=== PATIENT | female | born 1930 | race Hispanic/Latino ===

== ENCOUNTER → 2018-10-02 | Outpatient (CLI) | payer MEDICARE | END | disposition home or self-care (01) | LOC: SHCH 13:30 | PROVIDERS: ATTEND Internal Medicine Cardiovascular Disease | DX: R60.9 Edema, unspecified (principal) | CPT/HCPCS: 93306 ==

== ENCOUNTER 2019-06-07 18:02 | Inpatient (IN) | payer MEDICARE ==
[~2019-06-07] VITALS: Ht 160 cm; Wt 77.0 kg
[2019-06-07] MEDS ORDERED: ONDANSETRON HCL 4 MG/2 ML VIAL ONE (18:10)
[2019-06-07 18:43] LABS: BASOPHILS % (AUTO) 0.1 % (0.0-5.0); EOSINOPHILS % (AUTO) 0.3 % (0.0-8.0); HEMATOCRIT 31.5 % (36-48); LYMPHOCYTES % (AUTO) 2.9 % (21.0-51.0); MEAN CORPUSCULAR HEMOGLOBIN 25.2 pg (27.0-33.0); MEAN CORPUSCULAR HGB CONC 31.4 g/dL (32.0-36.0); MEAN CORPUSCULAR VOLUME 80.2 fL (79-99); MONOCYTES % (AUTO) 1.3 % (3.0-13.0); PLATELET COUNT (AUTO) 255 K/uL (130-400); RED BLOOD CELL COUNT(AUTO) 3.93 MIL/uL (4.00-5.50); RED CELL DISTRIBUTION WIDTH 14.5 % (11.0-15.5); WHITE BLOOD COUNT (AUTO) 13.7 K/uL (4.8-10.8)
[2019-06-07 19:01] LABS: APPEARANCE,URINE Clear (CLEAR); BILIRUBIN,URINE Negative (NEGATIVE); COLOR,URINE Yellow (YELLOW); GLUCOSE, URINE (UA) Negative (NEGATIVE); KETONES,URINE Negative (NEGATIVE); LEUKOCYTE ESTERASE ,URINE Negative (NEGATIVE); NITRATE,URINE Negative (NEGATIVE); OCCULT BLOOD,URINE Negative (NEGATIVE); PROTEIN,URINE Negative (NEGATIVE)
[2019-06-07 19:29] LABS: CREATININE 1.3 mg/dL (0.5-1.5); POTASSIUM 3.9 mmol/L (3.5-5.1)
[2019-06-07 19:34] LABS: ALBUMIN 3.8 g/dL (3.5-5.0); BILIRUBIN,TOTAL 1.5 mg/dL (0.2-1.0); TOTAL PROTEIN, SERUM 7.1 g/dL (6.0-8.3)
[2019-06-07] MEDS ORDERED: ACETAMINOPHEN 325 MG TAB ONE (19:46)
[2019-06-07] MEDS ORDERED: CEFTRIAXONE SODIUM 1 GM ONE (21:03)
[2019-06-07] MEDS ORDERED: AZITHROMYCIN 250 MG TABLET PO ONE (21:04)
[2019-06-07] MEDS ORDERED: ACETAMINOPHEN 325 MG TAB PO PRN ×2 (21:30)
[2019-06-07] MEDS ORDERED: DEXTROSE 50%-WATER 50 ML DISP.SYRIN IV PRN (21:30)
[2019-06-07] MEDS ORDERED: ONDANSETRON HCL 4 MG/2 ML VIAL IVP PRN (21:30)
[2019-06-07] MEDS ORDERED: GLUCAGON 1MG KIT 1 MG ML IM PRN (21:30)
[2019-06-07] MEDS ORDERED: SODIUM CHLORIDE 0.9% 10 ML VIAL IVP PRN (21:30)
[2019-06-07] MEDS ORDERED: HYDROXYCHLOROQUINE SULFATE 200 MG TAB PO ONE (21:45)
[2019-06-07] MEDS ORDERED: DILTIAZEM HCL 125 MG/25 ML 125 MG in SODIUM CHLORIDE 0.9% 100 ML IV SCH (22:00)
[2019-06-07] MEDS ORDERED: METOPROLOL TARTRATE 1 MG/ML 5ML VIAL IV PRN (22:00)
[2019-06-07] MEDS: PHARMACY COMMUNICATION MISC SCH (22:00)
[2019-06-07 23:25] VITALS: BP 91/40
[2019-06-07] MEDS ORDERED: VANCOMYCIN PROTOCOL PER PHARMACY IV SCH (23:45)
[2019-06-08] VITALS (90 sets, daily range): BP systolic 55–172; BP diastolic 24–103
[2019-06-08] MEDS: NOREPINEPHRINE 4MG/NS 250ML 250 ML IV SCH ×6 (00:28→11:06)
[2019-06-08] MEDS ORDERED: VANCOMYCIN 1GM+NS 250ML 250 ML IV STA (00:29)
[2019-06-08] MEDS: ZOSYN 3.375GM+NS 50ML 50 ML IV SCH ×3 (01:15→23:52)
[2019-06-08] MEDS ORDERED: VANCOMYCIN 1.75 GM in SODIUM CHLORIDE 0.9% 250 ML IV SCH (02:00)
[2019-06-08] MEDS ORDERED: VANCOMYCIN 1GM+NS 250ML 250 ML IV ONE (02:12)
[2019-06-08] MEDS ORDERED: CARV12.511 PO (03:37)
[2019-06-08] MEDS ORDERED: LINA5TAB PO (03:37)
[2019-06-08] MEDS ORDERED: LOSA50TA64 PO (03:37)
[2019-06-08] MEDS ORDERED: DONE10TA43 PO (03:37)
[2019-06-08] MEDS ORDERED: POTA10CA44 PO (03:37)
[2019-06-08] MEDS ORDERED: FURO40TA7 PO (03:37)
[2019-06-08] MEDS ORDERED: MONT10TA26 PO (03:37)
[2019-06-08] MEDS ORDERED: PRED2.5T PO (03:37)
[2019-06-08] MEDS ORDERED: AMLO-314 PO (03:37)
[2019-06-08 05:41] LABS: BASOPHILS % (AUTO) 0.2 % (0.0-5.0); EOSINOPHILS % (AUTO) 0.2 % (0.0-8.0); LYMPHOCYTES % (AUTO) 1.2 % (21.0-51.0); MEAN CORPUSCULAR HGB CONC 29.6 g/dL (32.0-36.0); MEAN CORPUSCULAR VOLUME 84.4 fL (79-99); MONOCYTES % (AUTO) 3.6 % (3.0-13.0); NEUTROPHILS % (AUTO) 92.5 % (40.0-77.0); PLATELET COUNT (AUTO) 217 K/uL (130-400); RED CELL DISTRIBUTION WIDTH 14.6 % (11.0-15.5); WHITE BLOOD COUNT (AUTO) 27.5 K/uL (4.8-10.8)
[2019-06-08 05:57] LABS: CREATININE 1.8 mg/dL (0.5-1.5); POTASSIUM 4.3 mmol/L (3.5-5.1)
[2019-06-08] MEDS: PHARMACY COMMUNICATION MISC SCH (06:00)
[2019-06-08 06:12] LABS: ALBUMIN 3.1 g/dL (3.5-5.0); BILIRUBIN,TOTAL 2.7 mg/dL (0.2-1.0); TOTAL PROTEIN, SERUM 5.7 g/dL (6.0-8.3)
[2019-06-08] MEDS: INSULIN R PO SS1 SQ SCH ×4 (06:57→20:59)
--- NOTE | 2019-06-08 07:59 | NUR ---
0000: patient arrived to room 219. on room air, satting 85%. patient connected to bedside monitoring, and placed on 3l nc. bedside report recieved from adrianna harmon rn. 18g piv placed in the L. AC, prn order for levophed to maintain blood pressure greater then 65 started at this time at 0.4mcg/kg/min. 0030: benchmark inspector advanced composite, sandhya philip, paged by unit nurse 0100: ROSIO philip, returned call. order for PICC line placement in am. Stat 1gram of IV vancomycin and orders for vancomycin dosing per pharmacy protocol. prn order for vasopressin to maintain map greater then 65. order for abg at 7am. ok to place patient on high flow NC to maintain o2 saturations greater then 92. torb
--- NOTE | 2019-06-08 08:03 | NUR ---
SPOKE TO WHITNEY AND UPDATED ON PTS STATUS. PICC LINE CONSENT OBTAINED. EXPLAINED THAT PT IS AROUSABLE, BUT IS NEEDING INCREASING AMOUNTS OF VASOPRESSOR MEDICATIONS TO KEEP BLOOD PRESSURE FROM FALLING. SPOKE ABOUT DNR PER MD JONES. RECEIVED CONSENT FOR DNR ALSO.
--- NOTE | 2019-06-08 08:04 | NUR ---
0545: DATA SUPPORT SPECIALIST, sandhya philip, paged by ammunition assembly ii laborer in regards to critical am lab result [phone]: pending call back from DATA SUPPORT SPECIALIST. bedside report given cristian posey. RN made aware of DATA SUPPORT SPECIALIST pending call back.
[2019-06-08] MEDS: VASOPRESSIN 20 UNITS in SODIUM CHLORIDE 0.9% 100 ML IV PRN (08:05)
[2019-06-08 08:20] LABS: INR 1.16 (0.85-1.15); PROTHROMBIN TIME 12.5 SEC (9.6-11.6)
[2019-06-08] MEDS ORDERED: HYDROXYCHLOROQUINE SULFATE 200 MG TAB PO SCH ×2 (09:00→21:00)
--- NOTE | 2019-06-08 09:30 | NUR ---
PT WAS ABLE TO STAY AWAKE AND SWALLOW PILLS WITHOUT DIFFICULTY. VERY CONFUSED. ATTEMPTING TO REMOVE OXYGEN AND LINES. PT IS ANXIOUS. CALLED CANDIDA BUCKNER, DAUGHTER IN LAW FROM PTS ROOM PHONE. THAT SEEMED TO CALM HER A BIT. PT. REMAINS ANXIOUS. SPO2 IS 98% WITH 3L N/C
--- NOTE | 2019-06-08 10:30 | NUR ---
PT IS AWAKE, CONFUSED, ATTEMPTS TO REMOVE NASAL CANNULA. NO USE OF ACCESSORY MUSCLES FOR BREATHING RATE IS WNL. HR SINUS RYTHM. ON LEVOPHED HIGH DOSE ALONG WITH VASOPRESSIN
--- NOTE | 2019-06-08 10:53 | NUR ---
CHART REVIEWED, PT STATUS DISCUSS W MARIEL MENSAH UPLOADED Addendum: 06/08/19 at 1054 by JAZ STEVENSON RN CM Amended: Links added.
--- NOTE | 2019-06-08 10:55 | NUR ---
Patient is pending IM Letter to be signed. As of now COVID results are still pending, I will follow up on patient.
--- NOTE | 2019-06-08 12:00 | NUR ---
PICC LINE PLACED TO RIGHT ARM WITHOUT INCIDENT
[2019-06-08] MEDS ORDERED: ALBUMIN (HUMAN) 25% 100 ML IV SCH (13:00)
[2019-06-08] MEDS ORDERED: NOREPINEPHRINE 4MG/NS 250ML 250 ML IV SCH (13:15)
[2019-06-08] MEDS ORDERED: PHARMACY COMMUNICATION MISC SCH ×4 (13:15→17:00)
[2019-06-08] MEDS ORDERED: NOREPINEPHRINE BITARTRATE 32 MG in SODIUM CHLORIDE 0.9% 250 ML IV SCH (13:30)
--- NOTE | 2019-06-08 13:30 | NUR ---
PT KEEPS REMOVING MITTENS AND OXYGEN. ON 2 PRESSORS AND ATTEMPTING TO REMOVE LINES. PT IS CLOSE TO NURSES STATION AND IS BEING CLOSELY WATCHED. NOTIFIED.
[2019-06-08] MEDS ORDERED: LACTATED RINGERS 1000ML IV SCH (14:30)
--- NOTE | 2019-06-08 14:30 | NUR ---
ALBUMIN AND LASIX ORDERED. PT IS WITH FLUID OVERLOAD DUE TO HIGH DOSE LEVOPHED BEING GIVEN. LEVO DOSE CONCENTRATED NOW THAT SHE HAS A CENTRAL LINE. LAIRD STARTED AT 1300
[2019-06-08] MEDS ORDERED: LACTATED RINGERS 1000ML 250 ML IV SCH (15:15)
[2019-06-08] MEDS ORDERED: LACTATED RINGERS 1000ML 1,000 ML IV SCH (15:15)
[2019-06-08] MEDS ORDERED: FUROSEMIDE 10 MG/ML 2ML VIAL IV SCH (15:15)
--- NOTE | 2019-06-08 15:30 | NUR ---
PLACED ON HIGH FLOW OXYGEN. SITTER AT BEDSIDE DUE TO PT REMOVING OXYGEN AND ATTEMPTING TO REMOVE LAIRD AND CENTRAL LINE
[2019-06-08] MEDS ORDERED: NOREPINEPHRINE 4MG/NS 250ML 250 ML IV ONE (15:36)
[2019-06-08] MEDS ORDERED: NOREPINEPHRINE BITARTRATE 8 MG/NS 250ML IV SCH ×2 (15:45)
[2019-06-08] MEDS ORDERED: NOREPINEPHRINE BITARTRATE 32 MG in SODIUM CHLORIDE 0.9% 250 ML IV NR (15:45)
[2019-06-08] MEDS ORDERED: NOREPINEPHRINE BITARTRATE 16 MG in SODIUM CHLORIDE 0.9% 250 ML IV SCH (16:00)
--- NOTE | 2019-06-08 16:03 | NUR ---
INITIAL- SPOKE W DAUGHTER ALEXANDRE W DAUGHTER WHITNEY VIA PHONE TIFFANIE LIVES ALONE, BUT HAS MANY SONS/DAUGHTERS LIVING VERY CLOSE BY, LOTS OF CONTACT/VISITING . AMBULATORY WITHOUT DME. HAS PROVIDER 2O HRS WEEK, NEEDS ASISTANCE TO BATHE. FAMILY DRIVES TO APPOINTMENTS. HAVE SEVEN CHILDREN- WHITNEY ON FACE SHEET IS SPOKESPERSON FOR ALL FMAILY. DCP IS HOME. SEES DR. SMITH IN [place]. SAW HIM JUST LAST WEEK. FACE SHEET UPDATE. PATIENT VERY ILL, WHITNEY AWARE. Addendum: 06/08/19 at 1611 by JAZ STEVENSON RN CM Amended: Links added.
[2019-06-08] MEDS ORDERED: CEFTRIAXONE SODIUM 1 GM IVP SCH (20:00)
[2019-06-08] MEDS: AZITHROMYCIN 250 MG TABLET PO SCH (20:58)
[2019-06-08] MEDS ORDERED: AZITHROMYCIN 500MG+NS 250ML 250 ML IV SCH (21:00)
[2019-06-09] VITALS (63 sets, daily range): BP systolic 79–122; BP diastolic 19–75
[2019-06-09] MEDS: NOREPINEPHRINE BITARTRATE 8 MG in SODIUM CHLORIDE 0.9% 250 ML IV SCH ×2 (02:49→16:54)
[2019-06-09] MEDS: VANCOMYCIN 500MG+NS 100ML 100 ML IV SCH (05:28)
[2019-06-09] MEDS: INSULIN R PO SS1 SQ SCH ×4 (05:35→20:30)
[2019-06-09 07:01] LABS: ALBUMIN 3.3 g/dL (3.5-5.0); BILIRUBIN,DIRECT 2.8 mg/dL (0.0-0.3); BILIRUBIN,TOTAL 3.4 mg/dL (0.2-1.0); POTASSIUM 4.7 mmol/L (3.5-5.1); TOTAL PROTEIN, SERUM 6.4 g/dL (6.0-8.3)
[2019-06-09] MEDS ORDERED: ALPR-409 PO (09:28)
[2019-06-09] MEDS ORDERED: LORAZEPAM 2 MG/ML 1 ML VIAL IVP PRN (09:45)
[2019-06-09] MEDS: MIDODRINE HCL 5 MG TABLET PO SCH ×3 (10:16→20:31)
[2019-06-09] MEDS: FUROSEMIDE 10 MG/ML 4ML VIAL IV SCH ×2 (10:17→20:31)
[2019-06-09 12:15] LABS: CREATININE,URINE RANDOM 218 mg/dL (30-135); SODIUM,URINE RANDOM 19 mmol/l (40-220)
[2019-06-09] MEDS: ZOSYN 3.375GM+NS 50ML 50 ML IV SCH (12:55)
[2019-06-09] MEDS: VASOPRESSIN 20 UNITS in SODIUM CHLORIDE 0.9% 100 ML IV PRN (12:57)
--- NOTE | 2019-06-09 13:00 | NUR ---
MRCP - NOT AT THIS TIME SPOKE TO BEAN PICKER MACHINE OPERATOR DIDIER REGARDING MRCP. PATIENT IS UNABLE TO GO AT THIS TIME DUE TO SEVERE HYPOTENSION/SEPTIC SHOCK AND CURRENTLY ON 2 VASOPRESSOR LEVOPHED/VASOPRESSIN. ALSO DISCUSSED PATIENT'S AGITATION/DEMENTIA BECAUSE PATIENT DOES NOT FOLLOW COMMANDS WELL AT ALL TIMES, AND WILL HAVE TO BE STILL AND FOLLOW BREATHING COMMANDS IN ORDER TO HAVE A DIAGNOSTIC SCAN. WILL NOTIFY PHYSICIAN'S THAT MRCP CANNOT BE DONE AT THIS TIME AND TO CONSIDER ALTERNATIVE STUDIES. WILL CONTINUE TO COORDINATE WITH RADIOLOGY.
[2019-06-09] MEDS: AZITHROMYCIN 250 MG TABLET PO SCH (20:31)
[2019-06-10] VITALS (64 sets, daily range): BP systolic 73–118; BP diastolic 18–62
[2019-06-10] MEDS: ZOSYN 3.375GM+NS 50ML 50 ML IV SCH ×3 (00:01→23:57)
[2019-06-10] MEDS: VASOPRESSIN 20 UNITS in SODIUM CHLORIDE 0.9% 100 ML IV PRN ×3 (00:46→18:00)
[2019-06-10] MEDS ORDERED: MORPHINE SULFATE 2 MG/ML 1ML SYG IVP PRN (02:45)
[2019-06-10] MEDS ORDERED: MORPHINE SULFATE 2 MG/ML 1ML SYG ONE (02:46)
[2019-06-10] MEDS: NOREPINEPHRINE BITARTRATE 8 MG in SODIUM CHLORIDE 0.9% 250 ML IV SCH ×3 (03:28→18:00)
[2019-06-10 05:07] LABS: BASOPHILS % (AUTO) 0.1 % (0.0-5.0); LYMPHOCYTES % (AUTO) 2.1 % (21.0-51.0); MEAN CORPUSCULAR HEMOGLOBIN 25.2 pg (27.0-33.0); MEAN CORPUSCULAR HGB CONC 29.6 g/dL (32.0-36.0); MEAN CORPUSCULAR VOLUME 85.1 fL (79-99); MONOCYTES % (AUTO) 4.5 % (3.0-13.0); NEUTROPHILS % (AUTO) 90.3 % (40.0-77.0); PLATELET COUNT (AUTO) 152 K/uL (130-400); RED BLOOD CELL COUNT(AUTO) 3.29 MIL/uL (4.00-5.50); RED CELL DISTRIBUTION WIDTH 15.3 % (11.0-15.5); WHITE BLOOD COUNT (AUTO) 14.8 K/uL (4.8-10.8)
[2019-06-10 05:33] LABS: ALBUMIN 2.9 g/dL (3.5-5.0); BILIRUBIN,DIRECT 3.5 mg/dL (0.0-0.3); BILIRUBIN,TOTAL 3.8 mg/dL (0.2-1.0); CREATININE 4.6 mg/dL (0.5-1.5); POTASSIUM 4.9 mmol/L (3.5-5.1); TOTAL PROTEIN, SERUM 6.3 g/dL (6.0-8.3)
[2019-06-10 05:35] LABS: % IRON SATURATION 2.7 % (22-44)
[2019-06-10] MEDS: VANCOMYCIN 500MG+NS 100ML 100 ML IV SCH (06:08)
[2019-06-10] MEDS: INSULIN R PO SS1 SQ SCH ×4 (06:45→20:44)
[2019-06-10] MEDS: FUROSEMIDE 10 MG/ML 4ML VIAL IV SCH (08:17)
[2019-06-10] MEDS: MIDODRINE HCL 5 MG TABLET PO SCH ×4 (08:19→21:00)
[2019-06-10] MEDS ORDERED: EPOETIN ALFA 10,000 UNIT/ML VIAL SQ SCH (08:45)
[2019-06-10] MEDS ORDERED: COMPOUND IV MISC 1 EACH IVSOLN MISC PRN (09:00)
[2019-06-10] MEDS: IRON SUCROSE COMPLEX 100 MG in SODIUM CHLORIDE 0.9% 50 ML IV SCH (09:12)
[2019-06-10] MEDS: SODIUM CHLORIDE 0.9% 1000ML 1,000 ML IV SCH (09:12)
[2019-06-10] MEDS: LINEZOLID 600 MG/ISO-OSM 300 ML IV SCH ×2 (12:17→23:30)
--- NOTE | 2019-06-10 20:16 | NUR ---
UPDATE PT STATUS DNR LETHARGIC DIFFICULT TO AROUSE W PAINFUL STIMULI CONTINUE ON HI FLOW NC AND MULTIPLE PRESSORS HI DOSE. SPOKE WITH DAUGHTER WHITNEY INFORMED OF PT CONDITION DETERIORATING. UPDATED AND ALLOWED TIME TO ASK QUESTIONS. WILL CONTINUE TO MONITOR PT.
[2019-06-10] MEDS: AZITHROMYCIN 250 MG TABLET PO SCH (21:00)
[2019-06-11] VITALS (77 sets, daily range): BP systolic 87–131; BP diastolic 29–55
[2019-06-11] MEDS: SODIUM CHLORIDE 0.9% 1000ML 1,000 ML IV SCH ×2 (00:04→11:25)
[2019-06-11] MEDS: NOREPINEPHRINE BITARTRATE 8 MG in SODIUM CHLORIDE 0.9% 250 ML IV SCH ×3 (00:35→09:05)
[2019-06-11] MEDS: VASOPRESSIN 20 UNITS in SODIUM CHLORIDE 0.9% 100 ML IV PRN ×3 (02:55→18:19)
[2019-06-11 03:46] LABS: HEMATOCRIT 30.5 % (36-48); MEAN CORPUSCULAR HEMOGLOBIN 24.9 pg (27.0-33.0); MEAN CORPUSCULAR HGB CONC 29.2 g/dL (32.0-36.0); MEAN CORPUSCULAR VOLUME 85.2 fL (79-99); NUCLEATED RED BLOOD CELLS 0.3 % (0.0-0.19); RED BLOOD CELL COUNT(AUTO) 3.58 MIL/uL (4.00-5.50); RED CELL DISTRIBUTION WIDTH 15.6 % (11.0-15.5); WHITE BLOOD COUNT (AUTO) 17.4 K/uL (4.8-10.8)
[2019-06-11 04:17] LABS: ALBUMIN 2.6 g/dL (3.5-5.0); BILIRUBIN,DIRECT 3.7 mg/dL (0.0-0.3); BILIRUBIN,TOTAL 4.3 mg/dL (0.2-1.0); CREATININE 5.3 mg/dL (0.5-1.5); MAGNESIUM 1.9 mg/dL (1.80-2.40); PHOSPHORUS 7.9 mg/dL (2.5-4.9); POTASSIUM 5.4 mmol/L (3.5-5.1); TOTAL PROTEIN, SERUM 6.1 g/dL (6.0-8.3)
[2019-06-11] MEDS: INSULIN R PO SS1 SQ SCH ×4 (07:30→21:00)
[2019-06-11] MEDS: MIDODRINE HCL 5 MG TABLET PO SCH ×3 (09:00→21:00)
--- NOTE | 2019-06-11 09:40 | NUR ---
FAMILY UPDATED PATIENT'S DAUGHTER WHITNEY WAS UPDATED ABOUT PATIENT'S CURRENT CONDITION AT THIS TIME. SHE SPOKE TO JUNAID RISK ASSESSOR VIA TELEPHONE CALL AT THIS TIME.
[2019-06-11] MEDS: IRON SUCROSE COMPLEX 100 MG in SODIUM CHLORIDE 0.9% 50 ML IV SCH (09:47)
[2019-06-11] MEDS: NOREPINEPHRINE BITARTRATE 32 MG in SODIUM CHLORIDE 0.9% 250 ML IV SCH ×2 (10:01→18:20)
--- NOTE | 2019-06-11 10:30 | NUR ---
FAMILY UPDATED PATIENT'S DAUGHTER IN LAW, YUE CALLED AT THIS TIME, WANTING AN UPDATE. SHE WAS NOTIFIED THAT NOT MUCH INFORMATION WILL BE GIVEN OVER THE PHONE. SHE STATED SHE IS A REGISTERED NURSE AND WILL BE ABLE TO NOTIFY HER FAMILY ABOUT PATIENT'S CURRENT CONDITION BETTER THAN BI OLSON. CALL WAS DEFERRED TO JUNAID MENSAH.
[2019-06-11] MEDS: ZOSYN 3.375GM+NS 50ML 50 ML IV SCH (11:12)
[2019-06-11] MEDS: LINEZOLID 600 MG/ISO-OSM 300 ML IV SCH ×2 (11:12→23:41)
--- NOTE | 2019-06-11 12:30 | NUR ---
CALL TO DAUGHTER DEIDRE Advised by CINDI Wilson that Daughter in Law Baylee has called for information and also to advise Katie that Hospice was being requested by family, states nair on face sheet as responsible democrat is elderly and cannot look after patient. Call to Deidre daughter, spokesperson, to update o patient condition. Deidre vazquez understands that patient is very sick. [facility] family is divided about direction of care; has a sister in [place] that wants patient to continue in hospital with all the medication and get better. [facility] two brothers are for hospice and bringing patient home. States she understands patient is very critical and could go at any time. Encouraged Deidre to find common ground with her siblings and continue to discuss to reach agreement. CLAUDIA then noted there is a withdrawal order in the chart. Call to Fe RUELAS gave [facility] number to her.Unclear whether there is a written POA, Fe to find out. En MENSAH Addendum: 06/11/19 at 1332 by JAZ STEVENSON RN CM Amended: Links added.
--- NOTE | 2019-06-11 15:30 | NUR ---
FAMILY PATIENT'S SON, HOLLI JUST ARRIVED. HE'S CURRENTLY AT BEDSIDE.
--- NOTE | 2019-06-11 16:00 | NUR ---
FAMILY PATIENT'S SON RAFFI ARRIVED AT 1545 AND SON KELSI ARRIVED AT 1600. ALL THREE SONS AT BEDSIDE.
--- NOTE | 2019-06-11 16:33 | NUR ---
FAMILY- UNDECIDED Sw spoke to daughter Deidre and sons Roberto and Jayro. Siblings state they are not in agreement on hospice. Sw updated children on condition and prognosis as I was informed by nurse Sadi and CM. Children requesting to see pt. Janice spoke to juan Juarez who approved visit. All five children have come to see pt and still have not made decision.
--- NOTE | 2019-06-11 18:30 | NUR ---
FAMILY PLAN OF CARE JUNAID MENSAH HAS BEEN MADE AWARE THAT FAMILY HAS DECIDED TO CONTINUE CARE IS, WITH VASOPRESSORS AND ANTIBIOTICS, INSTEAD OF COMFORT MEASURES. PATIENT WILL REMAIN IN ICU.
[2019-06-11] MEDS: AZITHROMYCIN 250 MG TABLET PO SCH (21:00)
[2019-06-12] VITALS (63 sets, daily range): BP systolic 58–130; BP diastolic 21–48
[2019-06-12] MEDS: ZOSYN 3.375GM+NS 50ML 50 ML IV SCH ×2 (00:48→12:54)
[2019-06-12] MEDS: VASOPRESSIN 20 UNITS in SODIUM CHLORIDE 0.9% 100 ML IV PRN ×2 (04:23→17:37)
[2019-06-12] MEDS: NOREPINEPHRINE BITARTRATE 32 MG in SODIUM CHLORIDE 0.9% 250 ML IV SCH (04:27)
[2019-06-12] MEDS: SODIUM CHLORIDE 0.9% 1000ML 1,000 ML IV SCH ×2 (05:22→13:04)
[2019-06-12] MEDS: INSULIN R PO SS1 SQ SCH ×4 (06:27→19:46)
--- NOTE | 2019-06-12 08:13 | NUR ---
CALLED GENERAL INTERNAL MEDICINE DOCTOR REGARDING IRREGULAR RESPIRATIONS AND RETRACTIONS, PLACED ON BIPAP PER MD ORDERS
--- NOTE | 2019-06-12 08:23 | NUR ---
UPDATING SISTER ON PTS DETERIORATING CONDITION
--- NOTE | 2019-06-12 08:44 | NUR ---
PT TOLERATING ON BIPAP MACHINE, OXYGENATION AT 100% BUT VERY WEAK WITH LOW RESPIRATIONS, DAUGHTER GIVEN CLEARANCE TO BE WITH PATIENT
[2019-06-12] MEDS: MIDODRINE HCL 5 MG TABLET PO SCH ×3 (09:00→19:46)
--- NOTE | 2019-06-12 09:20 | NUR ---
DAUGHTER ALLOWED TO BE AT PTS BEDSIDE, ROSIO QUIROGA EXPLAINED PTS CONDITION TO DAUGHTER
[2019-06-12] MEDS: IRON SUCROSE COMPLEX 100 MG in SODIUM CHLORIDE 0.9% 50 ML IV SCH (09:31)
[2019-06-12] MEDS: FLUCONAZOLE 200 MG/NS 100 ML 100 ML IV SCH (10:00)
[2019-06-12 10:03] LABS: HEMATOCRIT 28.6 % (36-48); MEAN CORPUSCULAR HEMOGLOBIN 25.6 pg (27.0-33.0); MEAN CORPUSCULAR HGB CONC 29.7 g/dL (32.0-36.0); MEAN CORPUSCULAR VOLUME 86.1 fL (79-99); NUCLEATED RED BLOOD CELLS 1.2 % (0.0-0.19); RED BLOOD CELL COUNT(AUTO) 3.32 MIL/uL (4.00-5.50); RED CELL DISTRIBUTION WIDTH 16.2 % (11.0-15.5); WHITE BLOOD COUNT (AUTO) 20.4 K/uL (4.8-10.8)
[2019-06-12 10:20] LABS: ALBUMIN 2.4 g/dL (3.5-5.0); BILIRUBIN,DIRECT 4.6 mg/dL (0.0-0.3); BILIRUBIN,TOTAL 5.1 mg/dL (0.2-1.0); CREATININE 6.3 mg/dL (0.5-1.5); MAGNESIUM 1.8 mg/dL (1.80-2.40); PHOSPHORUS 8.1 mg/dL (2.5-4.9)
--- NOTE | 2019-06-12 10:52 | NUR ---
BRUCE CALLED, PT NOT RESPONDING AT THIS TIME
[2019-06-12] MEDS: EPINEPHRINE 5 MG in SODIUM CHLORIDE 0.9% 250 ML IV SCH (11:16)
--- NOTE | 2019-06-12 11:19 | NUR ---
BP DROPPING WITH MAX LEVOPHED DOSE. STARTED EPINEPHRINE DRIP
[2019-06-12] MEDS ORDERED: SODIUM POLYSTYRENE SULFONATE 15 GM/60 ML ML RC SCH (11:30)
[2019-06-12] MEDS: LINEZOLID 600 MG/ISO-OSM 300 ML IV SCH (12:54)
--- NOTE | 2019-06-12 13:30 | NUR ---
MD HERNANDEZ, DR SALAZAR, PT UNRESPONSIVE TO ANY STIMULATION ON MAX DRIPS OF LEVO, VASOPRESSIN, EPI
[2019-06-12] MEDS: AZITHROMYCIN 250 MG TABLET PO SCH (19:46)
[2019-06-13] VITALS (29 sets, daily range): BP systolic 0–122; BP diastolic 0–57
[2019-06-13] MEDS: LINEZOLID 600 MG/ISO-OSM 300 ML IV SCH (00:11)
[2019-06-13] MEDS: ZOSYN 3.375GM+NS 50ML 50 ML IV SCH (00:14)
[2019-06-13] MEDS: VASOPRESSIN 20 UNITS in SODIUM CHLORIDE 0.9% 100 ML IV PRN (02:44)
[2019-06-13] MEDS: NOREPINEPHRINE BITARTRATE 32 MG in SODIUM CHLORIDE 0.9% 250 ML IV SCH (03:03)
[2019-06-13] MEDS: SODIUM CHLORIDE 0.9% 1000ML 1,000 ML IV SCH (03:03)
[2019-06-13] MEDS: INSULIN R PO SS1 SQ SCH (03:21)
[2019-06-13] MEDS: EPINEPHRINE 5 MG in SODIUM CHLORIDE 0.9% 250 ML IV SCH (08:30)
[2019-06-13] MEDS: FLUCONAZOLE 200 MG/NS 100 ML 100 ML IV SCH (08:43)
[2019-06-13] MEDS: IRON SUCROSE COMPLEX 100 MG in SODIUM CHLORIDE 0.9% 50 ML IV SCH (08:43)
[2019-06-13] MEDS: MIDODRINE HCL 5 MG TABLET PO SCH (09:00)
--- NOTE | 2019-06-13 09:30 | NUR ---
FAMILY UPDATE AND VISIT BY SON AND DAUGHTER IN LAW
--- NOTE | 2019-06-13 13:00 | NUR ---
MD ROUNDS, DR SALAZAR IN TO SEE PT.PT STILL UNRESPONSIVE WITH IRREGULAR BREATHING, ON MAX AMOUNT OF DRIPS, NO URINE OUTPUT
--- NOTE | 2019-06-13 16:05 | NUR ---
PT , CALLED. ROSIO RAO AND MUSIC RESEARCHER PRONOUNCED AT 1602. WHITNEY DAUGHTER CALLED TO NOTIFY OF PTS . SHE SAID SHE WILL TAKE CARE OF INFORMING THE REST OF THE FAMILY.
--- NOTE | 2019-06-13 17:00 | NUR ---
FAMILY HAS CHOSEN [facility] IN [place] ASSIGNED TO GENERAL FOREMAN PTS BODY. POST MORTEM CARE GIVEN.
== END 2019-06-13 16:02 | disposition expired | DRG 871 ==
LOC: EDH 18:02 → EDHIP 20:33 → OBSVTOIN 20:33 → 2DH 22:30 → 2CH 23:51 → DAHIP 06-10 23:04
PROVIDERS: ADMIT Internal Medicine; ATTEND Internal Medicine
PROC: 02H633Z Insertion of Infusion Device into Right Atrium, Percutaneous Approach (ICD-10-PCS; 2019-06-10)
PROC: 5A09357 Assistance with Respiratory Ventilation, Less than 24 Consecutive Hours, Continuous Positive Airway Pressure (ICD-10-PCS; principal; 2019-06-12)
PROC: 5A09357 Assistance with Respiratory Ventilation, Less than 24 Consecutive Hours, Continuous Positive Airway Pressure (ICD-10-PCS; 2019-06-13)
DX: A41.9 Sepsis, unspecified organism (principal); J18.9 Pneumonia, unspecified organism; K85.90 Acute pancreatitis without necrosis or infection, unspecified; G93.41 Metabolic encephalopathy; J96.91 Respiratory failure, unspecified with hypoxia; R65.21 Severe sepsis with septic shock; N17.9 Acute kidney failure, unspecified; E87.2 Acidosis; I13.0 Hypertensive heart and chronic kidney disease with heart failure and stage 1 through stage 4 chronic kidney disease, or unspecified chronic kidney disease; K80.60 Calculus of gallbladder and bile duct with cholecystitis, unspecified, without obstruction; F03.90 Unspecified dementia, unspecified severity, without behavioral disturbance, psychotic disturbance, mood disturbance, and anxiety; Z66 Do not resuscitate; F41.9 Anxiety disorder, unspecified; D64.9 Anemia, unspecified; E11.22 Type 2 diabetes mellitus with diabetic chronic kidney disease; E66.9 Obesity, unspecified; E86.9 Volume depletion, unspecified; E87.5 Hyperkalemia; I50.9 Heart failure, unspecified; N18.9 Chronic kidney disease, unspecified; R74.8 Abnormal levels of other serum enzymes; R94.5 Abnormal results of liver function studies; R62.7 Adult failure to thrive; Z68.30 Body mass index [BMI] 30.0-30.9, adult; Z79.84 Long term (current) use of oral hypoglycemic drugs; Z79.899 Other long term (current) drug therapy; Z74.01 Bed confinement status; Z03.818 Encounter for observation for suspected exposure to other biological agents ruled out; Z83.3 Family history of diabetes mellitus
CPT/HCPCS: 36415; 71045; 76705; 80048; 80053; 80076; 81003; 82140; 82150; 82570; 82948; 83540; 83550; 83605; 83690; 83735; 84100; 84145; 84300; 85025; 85027; 85610; 87040; 87071; 87205; 87633; 87635; 87804; 93005; 94660; A4344; A6250; C1751; C1894; G0378; J0171; J0696; J0885; J1450; J1756; J1940; J2020; J2405; J2543; J3370; J3490; J7030; J7050; P9046